=== PATIENT | male | born 1955 | race Caucasian/White ===

== ENCOUNTER 2022-09-30 20:28 | Inpatient (IN) | payer MEDICARE ==
[~2022-09-30] VITALS: Ht 170.2 cm; Wt 52.6 kg
--- NOTE | 2022-09-30 19:30 | NUR ---
Admission report received from [facility] nurse.
--- NOTE | 2022-09-30 19:48 | NUR ---
Patient arrived on the floor via gurney. Awake, in no respiratory distress, denies pain/discomforts. Transferred from [place] to bed with 2 people assist. Patient able to move all extremities with slight limitation on right LE. Right hip dressing dry and intact. Routine admission care done. Plan of care initiated. VS stable.
[2022-09-30 20:00] VITALS: BP 129/67
[2022-09-30] MEDS ORDERED: ACET-2154 PO (21:30)
[2022-09-30] MEDS ORDERED: LACT-246 PO (21:30)
[2022-09-30] MEDS ORDERED: PANT40TA49 PO (21:30)
[2022-09-30] MEDS ORDERED: MAGN400O6 PO (21:30)
[2022-09-30] MEDS ORDERED: ENOX40DI SQ (21:30)
[2022-09-30] MEDS ORDERED: MAGNESIUM HYDROXIDE 30 ML LIQUID UDC PO PRN (21:45)
[2022-09-30] MEDS: REMEDY ESSENTIAL ZINC PASTE 113 GM TOP SCH (21:49)
[2022-10-01 03:53] VITALS: BP 121/67
[2022-10-01] MEDS: PANTOPRAZOLE SODIUM 40 MG TABLET.DR PO SCH (06:21)
[2022-10-01 07:46] VITALS: BP 144/74
[2022-10-01] MEDS: OXYCODONE HCL 5 MG TABLET PO PRN ×2 (09:43→21:14)
[2022-10-01] MEDS: ENOXAPARIN SODIUM 40 MG/0.4 ML DISP.SYRIN SQ SCH (09:43)
[2022-10-01] MEDS: ENSURE ENLIVE (VAN) 240 ML LIQUID PO SCH ×3 (09:44→17:00)
[2022-10-01] MEDS: NICOTINE 14 MG/24HR PATCH TD SCH (10:32)
[2022-10-01] MEDS: REMEDY ESSENTIAL ZINC PASTE 113 GM TOP SCH ×2 (10:33→21:02)
[2022-10-01 16:38] VITALS: BP 120/67
[2022-10-01 20:00] VITALS: BP 134/64
--- NOTE | 2022-10-01 20:03 | NUR ---
shift note. pt aox4. in no acute distress. tolerated pt well. pt complain of pain on right hip ,oxycodone PRN was given for pain. pt is self care. ambulatory w/ fww. no wound drainage noted. dressing clean and intact. fall risk precaution observed. call light with in reach. bed locked.; will endorsed to noc shift.
--- NOTE | 2022-10-01 23:00 | NUR ---
1920- The patient is aox4. in no acute distress. tolerated pt well.The patient has no IV access. pt is self care. ambulatory w/ fww. The patient has no wound drainage noted. dressing clean and intact. fall risk precaution observed. call light within reach, two side rails up, bed alarm on, bed locked. 0000- The patient request for an extra warm blanket. Item is given to the patient. The patient has no sob. Will continue to monitor throughout the shift. 0300- The patient is resting comfortably. The patient is asleep and has no complains of pain or sob. Will continue to monitor throughout the shift.
[2022-10-02 04:00] VITALS: BP 129/70
[2022-10-02] MEDS: PANTOPRAZOLE SODIUM 40 MG TABLET.DR PO SCH (06:26)
[2022-10-02 07:42] LABS: HEMATOCRIT 30.3 % (36.7-47.1); MEAN CORPUSCULAR HEMOGLOBIN 34.3 uug (23.8-33.4); MEAN CORPUSCULAR VOLUME 102.4 fL (73.0-96.2); PLATELET COUNT (AUTO) 374 K/uL (152-348)
[2022-10-02 07:49] LABS: THYROID STIMULATING HORMONE 1.938 mIU/mL (0.358-3.740)
[2022-10-02 07:54] VITALS: BP 127/63
[2022-10-02 08:00] LABS: BILIRUBIN,TOTAL 0.5 mg/dL (0.2-1.0); CREATININE 0.8 mg/dL (0.6-1.3); PHOSPHOROUS 3.7 mg/dL (2.5-4.9); POTASSIUM 3.5 mmol/L (3.5-5.1); TOTAL PROTEIN, SERUM 6.7 g/dL (6.4-8.2)
[2022-10-02] MEDS: NICOTINE 14 MG/24HR PATCH TD SCH (09:48)
[2022-10-02] MEDS: CYANOCOBALAMIN 1000 MCG/ML VIAL IM SCH (09:48)
[2022-10-02] MEDS: ENOXAPARIN SODIUM 40 MG/0.4 ML DISP.SYRIN SQ SCH (09:49)
[2022-10-02] MEDS: ENSURE ENLIVE (VAN) 240 ML LIQUID PO SCH ×3 (09:49→17:27)
[2022-10-02] MEDS: REMEDY ESSENTIAL ZINC PASTE 113 GM TOP SCH ×2 (09:49→22:21)
[2022-10-02 20:20] VITALS: BP 119/60
--- NOTE | 2022-10-02 23:00 | NUR ---
1925-The patient is aox4. in no acute distress. tolerated pt well.The patient has no IV access. pt is self care. ambulatory w/ fww. The patient has no wound drainage noted. dressing clean and intact. fall risk precaution observed. call light within reach, two side rails up, bed alarm on, bed locked. 0100- The patient request for an extra water. Item is given to the patient. The patient has no sob. Will continue to monitor throughout the shift. 0400- The patient is resting comfortably. Dressings are clean and intact and has no complains of pain or sob. Will continue to monitor throughout the shift.
[2022-10-03 04:31] VITALS: BP 97/70
[2022-10-03] MEDS: PANTOPRAZOLE SODIUM 40 MG TABLET.DR PO SCH (06:41)
--- NOTE | 2022-10-03 07:30 | NUR ---
received report on patient from shift supervisor melting RN. pt in bed resting, A/Ox4 on room air, no signs of distress, no reports of pain. Pt ambulatory with walker, had bedside urinal. pt alert and cooperative, bed low and locked, call light within reach, will continue to monitor.
[2022-10-03 07:45] VITALS: BP 124/67
[2022-10-03] MEDS: CYANOCOBALAMIN 1000 MCG/ML VIAL IM SCH (10:00)
[2022-10-03] MEDS: ENOXAPARIN SODIUM 40 MG/0.4 ML DISP.SYRIN SQ SCH (10:01)
[2022-10-03] MEDS: NICOTINE 14 MG/24HR PATCH TD SCH (10:01)
[2022-10-03] MEDS: REMEDY ESSENTIAL ZINC PASTE 113 GM TOP SCH ×2 (10:01→22:22)
[2022-10-03] MEDS: ENSURE ENLIVE (VAN) 240 ML LIQUID PO SCH (10:01)
--- NOTE | 2022-10-03 10:27 | NUR ---
INDIVIDUALIZED PLAN OF CARE
[2022-10-03 13:07] LABS: CALCITRIOL VIT D,1,25 DIHYDROX 25.2 pg/mL (24.8-81.5)
[2022-10-03] MEDS: OXYCODONE HCL 5 MG TABLET PO PRN (14:31)
[2022-10-03 15:53] VITALS: BP 109/65
[2022-10-03] MEDS: GLUCERNA SHAKE 237 ML CAN PO SCH (17:28)
--- NOTE | 2022-10-03 23:00 | NUR ---
1925-The patient is aox4. in no acute distress. tolerated pt well. pt is self care. ambulatory w/ fww. The patient has no wound drainage noted. dressing clean and intact. fall risk precaution observed. call light within reach, two side rails up, bed alarm on, bed locked. 0200- The patient request for an extra warm blanket. Item is given to the patient. The patient has no sob. Will continue to monitor throughout the shift. 0530- The patient is resting comfortably. Changed Dressings and they clean and intact and has no complains of pain or sob. Will continue to monitor throughout the shift.
[2022-10-04] MEDS: OXYCODONE HCL 5 MG TABLET PO PRN (00:12)
[2022-10-04] MEDS: PANTOPRAZOLE SODIUM 40 MG TABLET.DR PO SCH (06:18)
[2022-10-04 07:59] VITALS: BP 129/63
[2022-10-04] MEDS: NICOTINE 14 MG/24HR PATCH TD SCH (08:39)
[2022-10-04] MEDS: GLUCERNA SHAKE 237 ML CAN PO SCH ×2 (08:40→16:10)
[2022-10-04] MEDS: CYANOCOBALAMIN 1000 MCG/ML VIAL IM SCH (08:40)
[2022-10-04] MEDS: ENOXAPARIN SODIUM 40 MG/0.4 ML DISP.SYRIN SQ SCH (08:54)
[2022-10-04] MEDS: REMEDY ESSENTIAL ZINC PASTE 113 GM TOP SCH ×2 (08:54→21:38)
--- NOTE | 2022-10-04 15:53 | NUR ---
patient is alert, oriented x4, no sob, respirations are even nonlabored, skin warm and dry to touch, incision site is clean and dry. no signs and symptoms of infection noted, no increased erythema, no drainage noted.
[2022-10-04 16:28] VITALS: BP 134/77
[2022-10-04 20:00] VITALS: BP 107/73
--- NOTE | 2022-10-05 05:43 | NUR ---
Slept comfortably. Not in distress. Dressing clean and dry. Denies pain or discomfort. All needs attended. Safety precautions maintained.
[2022-10-05] MEDS: PANTOPRAZOLE SODIUM 40 MG TABLET.DR PO SCH (06:13)
[2022-10-05 07:46] VITALS: BP 123/72
[2022-10-05] MEDS: ENOXAPARIN SODIUM 40 MG/0.4 ML DISP.SYRIN SQ SCH (08:25)
[2022-10-05] MEDS: NICOTINE 14 MG/24HR PATCH TD SCH (08:25)
[2022-10-05] MEDS: REMEDY ESSENTIAL ZINC PASTE 113 GM TOP SCH ×2 (08:26→20:42)
[2022-10-05] MEDS: GLUCERNA SHAKE 237 ML CAN PO SCH ×2 (08:26→16:28)
[2022-10-05] MEDS: CYANOCOBALAMIN 1000 MCG/ML VIAL IM SCH (08:26)
--- NOTE | 2022-10-05 16:20 | NUR ---
day intact to right hip, incision is clean and dry, dressing changed.
[2022-10-05 16:27] VITALS: BP 133/72
[2022-10-05 20:46] VITALS: BP 119/67
[2022-10-05] MEDS: OXYCODONE HCL 5 MG TABLET PO PRN (22:03)
--- NOTE | 2022-10-06 01:30 | NUR ---
Received patient in bed, alert oriented, no sob no chest pain, no complain of pain, continent of bladder, ambulate with fww, cont to monitor.
[2022-10-06 04:00] VITALS: BP 125/64
[2022-10-06 05:22] VITALS: BP 125/64
[2022-10-06] MEDS: PANTOPRAZOLE SODIUM 40 MG TABLET.DR PO SCH (06:10)
[2022-10-06 07:50] VITALS: BP 123/70
[2022-10-06] MEDS: GLUCERNA SHAKE 237 ML CAN PO SCH ×2 (08:18→17:21)
[2022-10-06] MEDS: CALCIUM CARB/VITAMIN D 500MG-200UNITS TABLET PO SCH (08:18)
[2022-10-06] MEDS: CYANOCOBALAMIN 1000 MCG/ML VIAL IM SCH (08:18)
[2022-10-06] MEDS: ENOXAPARIN SODIUM 40 MG/0.4 ML DISP.SYRIN SQ SCH (08:20)
[2022-10-06] MEDS: NICOTINE 14 MG/24HR PATCH TD SCH (08:20)
[2022-10-06] MEDS: REMEDY ESSENTIAL ZINC PASTE 113 GM TOP SCH ×2 (08:21→20:54)
[2022-10-06 16:00] VITALS: BP 103/61
[2022-10-06 20:42] VITALS: BP 113/64
--- NOTE | 2022-10-07 04:54 | NUR ---
AAOx4 Needs attended. Patient S/P IM nailing Right hip (09/28) Right hip dressing intact with day in placed. Denies any pain nor any discomfort. VSS. No acute distress noted. Will monitor patient. Voiding well. Kept comfortable.
[2022-10-07] MEDS: PANTOPRAZOLE SODIUM 40 MG TABLET.DR PO SCH (06:19)
[2022-10-07 07:33] VITALS: BP 125/71
[2022-10-07] MEDS: CYANOCOBALAMIN 1000 MCG/ML VIAL IM SCH (08:05)
[2022-10-07] MEDS: NICOTINE 14 MG/24HR PATCH TD SCH (08:05)
[2022-10-07] MEDS: CALCIUM CARB/VITAMIN D 500MG-200UNITS TABLET PO SCH (08:05)
[2022-10-07] MEDS: REMEDY ESSENTIAL ZINC PASTE 113 GM TOP SCH ×2 (08:06→21:00)
[2022-10-07] MEDS: GLUCERNA SHAKE 237 ML CAN PO SCH ×2 (08:06→17:38)
[2022-10-07] MEDS: ENOXAPARIN SODIUM 40 MG/0.4 ML DISP.SYRIN SQ SCH (08:12)
--- NOTE | 2022-10-07 13:00 | NUR ---
INTERDISCIPLINARY TEAM CONFERENCE
[2022-10-07] MEDS ORDERED: ACETAMINOPHEN 325 MG TABLET PO PRN (15:00)
[2022-10-07 16:00] VITALS: BP 140/72
[2022-10-07] MEDS: OXYCODONE HCL 5 MG TABLET PO PRN (17:37)
--- NOTE | 2022-10-07 19:53 | NUR ---
RECEIVED REPORT FROM YOLY LUCERO, IAIN SHIFT. PATIENT IS ALERT & ORIENTED X3-4, WITH PERIODS OF FORGETFULNESS, AND SPEAKS YI. VITAL SIGNS STABLE. PATIENT TOLERATES PO MEDICATIONS AND DIET WELL. PATIENT PARTICIPATES WITH PHYSICAL AND OCCUPATIONAL THERAPY SCHEDULED. PATIENT HAD COMPLAINT OF PAIN. RN PROVIDED MEDICATIONS ORDERED BY MD. PATIENT EXPRESSED RELIEF. ALL NEEDS ATTENDED TO AT THIS TIME. NO ACUTE DISTRESS NOTED. FALL PRECAUTIONS IN PLACE. ENDORSED CARE TO YOLY MARIA, IAIN SHIFT FOR CONTINUATION OF CARE.
[2022-10-07 20:00] VITALS: BP 109/79
--- NOTE | 2022-10-07 23:00 | NUR ---
1915-The patient is aox4. in no acute distress. tolerated pt well. pt is self care. ambulatory w/ fww. The patient has no wound drainage noted. dressing clean and intact. fall risk precaution observed. call light within reach, two side rails up, bed alarm on, bed locked. 2200- The patient request for an extra warm blanket. Item is given to the patient. The patient has no sob. Will continue to monitor throughout the shift. 0500- The patient is resting comfortably. Changed Dressings and they clean and intact and has no complains of pain or sob. Will continue to monitor throughout the shift.
[2022-10-08] MEDS: PANTOPRAZOLE SODIUM 40 MG TABLET.DR PO SCH (06:22)
[2022-10-08 08:00] VITALS: BP 125/64
[2022-10-08] MEDS: NICOTINE 14 MG/24HR PATCH TD SCH (08:33)
[2022-10-08] MEDS: CALCIUM CARB/VITAMIN D 500MG-200UNITS TABLET PO SCH (08:33)
[2022-10-08] MEDS: CYANOCOBALAMIN 1000 MCG/ML VIAL IM SCH (08:33)
[2022-10-08] MEDS: GLUCERNA SHAKE 237 ML CAN PO SCH ×2 (08:34→18:19)
[2022-10-08] MEDS: ENOXAPARIN SODIUM 40 MG/0.4 ML DISP.SYRIN SQ SCH (08:35)
[2022-10-08] MEDS: REMEDY ESSENTIAL ZINC PASTE 113 GM TOP SCH ×2 (09:01→21:42)
[2022-10-08] MEDS: OXYCODONE HCL 5 MG TABLET PO PRN (10:11)
[2022-10-08 15:53] VITALS: BP 99/62
--- NOTE | 2022-10-08 19:17 | NUR ---
RECEIVED REPORT FROM YOLY MARIA, IAIN SHIFT. PATIENT IS ALERT & ORIENTED X4 AND SPEAKS [place]IZ[place]. VITAL SIGNS STABLE. PATIENT TOLERATES PO MEDICATIONS AND DIET WELL. PATIENT PARTICIPATES WITH PHYSICAL AND OCCUPATIONAL THERAPY SCHEDULED. PATIENT HAD COMPLAINT OF PAIN. RN PROVIDED MEDICATIONS ORDERED BY MD. PATIENT EXPRESSED RELIEF. ALL NEEDS ATTENDED TO AT THIS TIME. NO ACUTE DISTRESS NOTED. FALL PRECAUTIONS IN PLACE. ENDORSED CARE TO YOLY MARIA NOC SHIFT FOR CONTINUATION OF CARE.
[2022-10-08 20:00] VITALS: BP 105/64
--- NOTE | 2022-10-08 23:00 | NUR ---
1920-The patient is aox4. in no acute distress. tolerated pt well. pt is self care. ambulatory w/ fww. The patient has no wound drainage noted. dressing clean and intact on the right hip. fall risk precaution observed. call light within reach, two side rails up, bed alarm on, bed locked. 2100- The patient request for an extra water. Item is given to the patient. The patient has no sob. Will continue to monitor throughout the shift. 0400- The patient is resting comfortably. Dressings are clean and intact and has no complains of pain or sob. Will continue to monitor throughout the shift.
[2022-10-09] MEDS: PANTOPRAZOLE SODIUM 40 MG TABLET.DR PO SCH (06:21)
[2022-10-09 07:58] VITALS: BP 120/75
[2022-10-09] MEDS: GLUCERNA SHAKE 237 ML CAN PO SCH ×2 (09:02→17:01)
[2022-10-09] MEDS: CALCIUM CARB/VITAMIN D 500MG-200UNITS TABLET PO SCH (09:02)
[2022-10-09] MEDS: NICOTINE 14 MG/24HR PATCH TD SCH (09:02)
[2022-10-09] MEDS: ENOXAPARIN SODIUM 40 MG/0.4 ML DISP.SYRIN SQ SCH (09:03)
[2022-10-09] MEDS: REMEDY ESSENTIAL ZINC PASTE 113 GM TOP SCH ×2 (09:04→20:37)
[2022-10-09] MEDS: OXYCODONE HCL 5 MG TABLET PO PRN (15:14)
[2022-10-09 16:23] VITALS: BP 125/74
--- NOTE | 2022-10-09 19:42 | NUR ---
RECEIVED REPORT FROM YOLY MARIA, IAIN SHIFT. PATIENT IS ALERT & ORIENTED X4 AND SPEAKS [place]. VITAL SIGNS STABLE. PATIENT TOLERATES PO MEDICATIONS AND DIET WELL. PATIENT PARTICIPATES WITH PHYSICAL AND OCCUPATIONAL THERAPY SCHEDULED. PATIENT HAD COMPLAINT OF PAIN. RN PROVIDED MEDICATIONS ORDERED BY MD. PATIENT EXPRESSED RELIEF. RN REMOVED LEAH PER MD ORDERS. INCISION SITE INTACT, NO DEHISCENCE & INFECTION NOTED. ALL NEEDS ATTENDED TO AT THIS TIME. NO ACUTE DISTRESS NOTED. FALL PRECAUTIONS IN PLACE. ENDORSED CARE TO YOLY MARIA, IAIN SHIFT FOR CONTINUATION OF CARE.
[2022-10-09 20:23] VITALS: BP 107/63
--- NOTE | 2022-10-09 23:00 | NUR ---
1910-The patient is aox4. in no acute distress. tolerated pt well. pt is self care. ambulatory w/ fww. The patient has no wound drainage noted. Gauze covering clean and intact on the right hip. fall risk precaution observed. call light within reach, two side rails up, bed alarm on, bed locked. 2200- The patient request for an extra blanket. Item is given to the patient. The patient has no sob. Will continue to monitor throughout the shift. 0200- The patient is resting comfortably. Gauze covering are clean and intact and has no complains of pain or sob. Will continue to monitor throughout the shift. 0400- The patient is asleep and has no complains of pain. Will continue to monitor throughout the shift.
[2022-10-10] MEDS: PANTOPRAZOLE SODIUM 40 MG TABLET.DR PO SCH (06:05)
[2022-10-10 07:56] VITALS: BP 136/81
[2022-10-10] MEDS: NICOTINE 14 MG/24HR PATCH TD SCH (08:40)
[2022-10-10] MEDS: GLUCERNA SHAKE 237 ML CAN PO SCH ×2 (08:40→17:05)
[2022-10-10] MEDS: CALCIUM CARB/VITAMIN D 500MG-200UNITS TABLET PO SCH (08:40)
[2022-10-10] MEDS: REMEDY ESSENTIAL ZINC PASTE 113 GM TOP SCH ×2 (08:41→21:07)
[2022-10-10] MEDS: ENOXAPARIN SODIUM 40 MG/0.4 ML DISP.SYRIN SQ SCH (08:43)
--- NOTE | 2022-10-10 09:43 | NUR ---
0730-Upon shift exchanged routine rounds rec'd patient in bed, patient seems to be asleep, no apparent respiratory distress noted, on room air and jefferson. well. Patient able to wake up on verbal commands, patient is alert x4, able to verbalize his needs and follow directions. Patient denies pain at this time, safety measures in place, call light within reach and encouraged to use it every time help is needed with good understanding. 0900-Scheduled medication administered, no ASE noted, patient swallows pills whole, no swallowing problems observed. Oral fluids taken well, patient continues eating his breakfast, patient independently with breakfast and able to feed herself, denies GI discomfort, no N/V noted.
[2022-10-10 16:40] VITALS: BP 129/67
--- NOTE | 2022-10-10 18:16 | NUR ---
Right hip surgical sites, s/p day removed. Affected areas cleanse with NS, pat dry, healing well, no bleeding or infection noted, apply DD. Patient denied any pain. Handled gently and carefully during care. Patient continues under PT/OT skilled services as ordered, actively able to participate in therapy. Fall precautions observed, routine rounds/frequent visual checks done and assist as needed during shift.
[2022-10-10 20:26] VITALS: BP 107/66
[2022-10-10] MEDS: OXYCODONE HCL 5 MG TABLET PO PRN (22:05)
--- NOTE | 2022-10-11 04:27 | NUR ---
AAOx4 Needs attended. OOB to the BR with walker. All needs attended. Right hip dressing clean dry and intact. Pain meds given as needed with relief noted. Voiding well. Fall precautions maintained. Siderails up for safety. Possible d/c today.
[2022-10-11 04:50] VITALS: BP 116/67
[2022-10-11] MEDS: PANTOPRAZOLE SODIUM 40 MG TABLET.DR PO SCH (06:12)
[2022-10-11 07:44] VITALS: BP 133/85
[2022-10-11] MEDS: NICOTINE 14 MG/24HR PATCH TD SCH (09:00)
[2022-10-11] MEDS: CALCIUM CARB/VITAMIN D 500MG-200UNITS TABLET PO SCH (09:00)
[2022-10-11] MEDS: ENOXAPARIN SODIUM 40 MG/0.4 ML DISP.SYRIN SQ SCH (09:01)
[2022-10-11] MEDS: GLUCERNA SHAKE 237 ML CAN PO SCH (09:02)
[2022-10-11] MEDS: REMEDY ESSENTIAL ZINC PASTE 113 GM TOP SCH (09:03)
--- NOTE | 2022-10-11 13:13 | NUR ---
patient is being discharged home, patient teaching done about medication and follow up with surgeon, taking care of incision site, patient verbalized understanding of it. 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 patient is stable condition, ambulatory, self care, no distress noted. belongings are accounted and signed.
--- NOTE | 2022-10-11 15:15 | NUR ---
patient discharged home. escorted to the car safely. ID removed.
[2022-10-15] MEDS ORDERED: CYANOCOBALAMIN 1000 MCG/ML VIAL IM SCH (09:00)
[2022-12-06] MEDS ORDERED: CYANOCOBALAMIN 1000 MCG/ML VIAL IM SCH (09:00)
== END 2022-10-11 15:10 | disposition home health service (06) | DRG 559 ==
PROVIDERS: ADMIT Physical Medicine & Rehabilitation Pain Medicine; ATTEND Physical Medicine & Rehabilitation Pain Medicine
DX: M80.051D Age-related osteoporosis with current pathological fracture, right femur, subsequent encounter for fracture with routine healing (principal); E43 Unspecified severe protein-calorie malnutrition; N17.0 Acute kidney failure with tubular necrosis; D68.59 Other primary thrombophilia; Z91.81 History of falling; D50.9 Iron deficiency anemia, unspecified; E78.5 Hyperlipidemia, unspecified; R62.7 Adult failure to thrive; D53.9 Nutritional anemia, unspecified; E53.8 Deficiency of other specified B group vitamins; E88.09 Other disorders of plasma-protein metabolism, not elsewhere classified; F17.210 Nicotine dependence, cigarettes, uncomplicated; M85.80 Other specified disorders of bone density and structure, unspecified site
CPT/HCPCS: 36415; 73502; 82378; 82652; 83550; 83735; 84100; 84443; 85025; 97535-GO-CO; A4663; J1650; J3420